=== PATIENT | male | born 1950 | race Caucasian/White ===

== ENCOUNTER 2019-01-14 13:45 | Observation (INO) ==
[2019-01-14] MEDS ORDERED: CARDIZEM IV ONE (14:05)
[2019-01-14 15:09] LABS: BASO# 0.04 X1000 (0.0-0.2); BASO% 0.6 % (0.0-0.8); EOS% 1.6 % (0.0-10.0); HEMOGLOBIN 15.3 g/dL (14.0-18.0); IMM GRAN# 0.04 X1000 (0.0-0.04); IMM GRAN% 0.6 % (0.0-0.5); LYMPH# 1.53 X1000 (1.2-3.4); MCH 32.3 PG (27-31); MCHC 34.8 g/dL (33-37); MONO# 0.62 X1000 (0.11-0.59); MONO% 9.7 % (1.7-9.3); MPV 9.9 FL (7.4-10.4); NEUT# 4.04 X1000 (1.4-6.5); NEUT% 63.5 % (42.2-75.2); PLT 138 X1000 (130-400); RBC 4.73 XMIL (4.7-6.1); RDW 15.2 % (11.5-14.5); WBC 6.37 X1000 (4.8-10.8)
--- NOTE | 2019-01-14 15:09 | EKG Report ---
Test Performed on : 01/14/2019 1:59:40 PM Test Reason : ER Blood Pressure : / mmHG Vent. Rate : 093 BPM Atrial Rate : 264 BPM P-R Int : 000 ms QRS Dur : 094 ms QT Int : 360 ms P-R-T Axes : 266 037 065 degrees QTc Int : 447 ms Atrial flutter. with variable AV block. with occasional ventricular-paced complexes Abnormal ECG When compared with ECG of 15-NOV-2017 14:00, Vent. rate has increased BY 23 BPM Unconfirmed Result
[2019-01-14 15:43] LABS: AGAP 15; ALBUMIN 4.3 g/dL (3.5-5.0); ALKALINE PHOSPHATASE 47 U/L (32-122); BUN 16 mg/dL (8-22); CALCIUM 8.7 mg/dL (8.8-10.2); CHLORIDE 104 mmol/L (98-107); COSMO 275; CREATININE 0.9 mg/dL (0.7-1.2); ESTIMATED GFR > 60; GLUCOSE 99 mg/dL (70-104); GOT 21 U/L (10-34); GPT 25 U/L (10-44); POTASSIUM 4.7 mmol/L (3.5-5.1); SODIUM 137 mmol/L (136-145); TCO2 18 mmol/L (25-35); TOTAL PROTEIN 6.6 g/dL (6.3-8.3)
[2019-01-14] MEDS ORDERED: NS 500 ML IV ONE (15:57)
[2019-01-14] MEDS ORDERED: ZOFRAN IV PRN (17:05)
--- NOTE | 2019-01-14 18:02 | HISTORY AND PHYSICAL ---
CHIEF COMPLAINT: "My heart is running away, and I am having trouble breathing." HISTORY OF PRESENT ILLNESS: This is a 68-year-old gentleman with a history of atrial fibrillation, gastroesophageal reflux disease, and protein S deficiency on chronic anticoagulation, who presented to the emergency room complaining of a sudden onset of palpitations, chest heaviness, fullness, and shortness of breath. He states he has had a history of atrial fibrillation for many years. It sounds like it is paroxysmal atrial fibrillation. He has been on flecainide for many years as well as Coumadin. He states he is aware when he goes in and out of atrial fibrillation, although this episode was not consistent with his normal. On arrival to the emergency room, he had heart rate of 120 and an EKG revealed atrial flutter with a varying AV block and reportedly ventricular tachycardia. He did state that about an hour and a half prior to this episode he took 3 magnesium pills along with his normal multivitamin and a supplement that he was given from a health food store locally. He is unaware of the name of the supplement, although the family is bringing it in. At present, he denies any chest pain, palpitations, any shortness of breath. PAST MEDICAL HISTORY: 1. Atrial fibrillation, paroxysmal. 2. Hypertension, although he is off medications as he has been experiencing hypotension. 3. Gastroesophageal reflux disease. 4. History of DVT. 5. Protein S deficiency, on chronic anticoagulation. 6. 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 PAST SURGICAL HISTORY: Colon resection. SOCIAL HISTORY: He is , lives with his . He denies alcohol or illicit drug use. He does smoke. ALLERGIES: No known drug allergies. HOME MEDICATIONS: A list will be obtained by the nursing staff and will be restarted as appropriate once they are reviewed. REVIEW OF SYSTEMS: Discussed with patient with pertinent positives stated in HPI. He denies any PND, orthopnea, any nausea/vomiting, diarrhea, constipation, black or bloody vomitus or stools, a productive cough, any fever or chills, or any hematuria dysuria frequency or urgency. PHYSICAL EXAMINATION: GENERAL: This is a 68-year-old gentleman, who is sitting up in the stretcher in ICU, in no distress. VITAL SIGNS: Blood pressure was 90/46 with a heart rate of 108, respirations are 20, temperature was 97.3 degrees with O2 saturations of 98% on room air. EYES: Pupils equal, round, and react to light. EOMs are intact. Sclerae anicteric. HEENT: Head is normocephalic, atraumatic. Mucous membranes are moist. NECK: Supple. Trachea midline. CARDIOVASCULAR: Regular rate and rhythm. S1 and S2 appreciated. He has no lower extremity edema with peripheral pulses palpable x4 extremities. PULMONARY: Breath sounds are clear with no increased work of breathing noted. Chest rise and fall symmetric with respiration. GASTROINTESTINAL: Soft, nontender, nondistended with bowel sounds in all 4 quadrants. NEUROLOGIC: He is alert and oriented x3. SKIN: Warm and dry. DIAGNOSTIC STUDIES: WBC is 6.3 with hemoglobin 15.3, hematocrit 44, and platelets of 138,000. Sodium 137, potassium 4.7, BUN 16, creatinine 0.9 with a glucose of 99. Troponin was negative. EKG revealed atrial flutter with varying block and occasional paced beats. ASSESSMENT AND PLAN: 1. Paroxysmal atrial flutter. 2. History of paroxysmal atrial fibrillation. 3. History of protein S deficiency, on chronic anticoagulation. 4. Hypertension, although the patient has been off medications as he has been experiencing hypotension. 5. History of deep vein thrombosis (DVT) secondary to protein S deficiency. PLAN: The patient will be admitted to CICU at [facility]. We will consult Cardiology. He will be placed on telemetry. We will get a stat INR as he is on warfarin. We will get a stat magnesium as we are unsure of exactly how much he did take prior to this. We will identify his home medications and continue these as appropriate. We will check a TSH. Hopefully, the will be able to bring in the supplement that he took so we can have an idea of how long the symptoms may last. Further treatments pending hospital course. Dictated by CHRISTIAN Rodriguez for Bakari Berry MD This chart was documented by, CHRISTIAN Rodriguez and accurately reflects the services performed, treatment plan and medical decisions as attested by the providers signature Bakari Berry MD. cc: CHRISTIAN Rodriguez MD
[2019-01-14 20:31] LABS: INR 1.1; PROTIME 15.1 Seconds (11.0-16.0)
--- NOTE | 2019-01-14 22:19 | HISTORY AND PHYSICAL ---
ADDENDUM: Patient seen and examined by myself. Full note dictated and discussed [*] The patient will be admitted to the hospital. cc: Bakari Berry MD
[2019-01-14] MEDS ORDERED: DESYREL PO SCH (22:38)
[2019-01-14] MEDS: TAMBOCOR PO SCH (23:17)
[2019-01-14] MEDS: BUSPAR PO SCH (23:17)
[2019-01-14] MEDS: ELIQUIS PO SCH (23:17)
[2019-01-15 05:41] LABS: HEMATOCRIT 41.3 % (42.0-52.0); HEMOGLOBIN 13.9 g/dL (14.0-18.0); MCH 32.3 PG (27-31); MCHC 33.7 g/dL (33-37); MPV 10.3 FL (7.4-10.4); RBC 4.3 XMIL (4.7-6.1); RDW 15.3 % (11.5-14.5); WBC 5.89 X1000 (4.8-10.8)
[2019-01-15 07:07] LABS: AGAP 11; ALB/GLOB RATIO 2.2; ALKALINE PHOSPHATASE 39 U/L (32-122); BUN 14 mg/dL (8-22); CALCIUM 8.7 mg/dL (8.8-10.2); CHLORIDE 106 mmol/L (98-107); COSMO 279; ESTIMATED GFR > 60; GLUCOSE 79 mg/dL (70-104); GOT 17 U/L (10-34); GPT 22 U/L (10-44); POTASSIUM 3.9 mmol/L (3.5-5.1); SODIUM 140 mmol/L (136-145); TCO2 23 mmol/L (25-35); TOTAL BILIRUBIN 0.61 mg/dL (0.20-1.00); TOTAL PROTEIN 5.8 g/dL (6.3-8.3)
[2019-01-15] MEDS: BUSPAR PO SCH ×2 (08:55→13:55)
[2019-01-15] MEDS: TAMBOCOR PO SCH (08:55)
[2019-01-15] MEDS: ELIQUIS PO SCH (08:55)
[2019-01-15] MEDS ORDERED: ELIQUIS PO SCH (09:00)
[2019-01-15] MEDS ORDERED: TAMBOCOR PO SCH ×2 (09:00→21:00)
[2019-01-15] MEDS ORDERED: BUSPAR PO SCH (09:00)
--- NOTE | 2019-01-15 10:09 | EKG Report ---
Test Performed on : 01/15/2019 10:02:44 AM Test Reason : Follow up Atrial Flutter Blood Pressure : / mmHG Vent. Rate : 064 BPM Atrial Rate : 064 BPM P-R Int : 242 ms QRS Dur : 104 ms QT Int : 414 ms P-R-T Axes : 064 025 044 degrees QTc Int : 427 ms Sinus rhythm. with 1st degree AV block. Otherwise normal ECG When compared with ECG of 15-JAN-2019 10:01, (Unconfirmed) No significant change was found Unconfirmed Result
--- NOTE | 2019-01-15 11:40 | PROGRESS NOTE ---
DATE: 01/15/2019 INTERVAL HISTORY: Overnight he was transferred from [facility] for atrial flutter with rapid ventricular response on admission and need for cardiology evaluation. SUBJECTIVE: He currently denies any chest pain, shortness of breath, palpitation. He stated that he had an echocardiogram about 2 years ago. He denies known history of coronary artery disease. He denies known history of congestive heart failure. I mentioned to him about need for repeating EKG and echocardiogram. I answered all of his questions. We are awaiting Cardiology recommendation. VITALS: Temperature 97.2 degrees, pulse 64, respiratory rate 16, blood pressure 103/67, saturating 97% room air. PHYSICAL EXAMINATION: General: Does not appear in any acute distress. HEENT: Oral cavity is moist. Lungs: Air entry bilaterally equal. No wheeze, rhonchi, crackles. Heart: S1, S2 normal. No murmur, rub, gallop. Normal sinus rhythm on EKG as well as bedside monitor. Abdomen: Soft. Nontender. Extremities: Bilateral lower extremity edema affecting up to midshin level with chronic lower extremity pigmentation. LABORATORY DATA: Labs suggest normal kidney function, normal electrolytes. Normal CBC. ASSESSMENT AND PLAN: 1. Paroxysmal atrial fibrillation with atrial flutter with variable atrioventricular (AV) block at the time of presentation, now has converted to normal sinus rhythm. Continue his home flecainide and continue apixaban for primary CVA prophylaxis as well as for history of multiple DVTs and protein S deficiency. Follow up with echocardiogram to rule out any structural heart disease. I will appreciate Cardiology recommendation if he needs any addition of beta magdalena. 2. History of multiple deep vein thromboses (DVTs), protein S deficiency. Continue Eliquis. 3. History of sick sinus syndrome status post pacemaker. Follow up with echocardiogram. He had started taking some [id number] supplements for weight reduction. I cautioned him against possible side effects of these supplements. DISPOSITION: I am awaiting echocardiogram and Cardiology evaluation. Based on that, I am anticipating discharge today. Plan of care discussed with the patient. All of his questions have been answered. cc: Aj Zuniga MD
--- NOTE | 2019-01-15 12:04 | DISCHARGE SUMMARY ---
ADMISSION DATE: 01/14/2019 DISCHARGE DATE: 01/15/2019 DISCHARGE DIAGNOSES: 1. Atrial flutter with rapid ventricular response with variable AV block. 2. Atypical chest pain. 3. Past medical history of atrial fibrillation with rapid ventricular response. 4. History of sick sinus syndrome status post pacemaker. 5. History of obstructive sleep apnea. 6. History of protein S deficiency with multiple lower extremity deep venous thromboses, on chronic anticoagulation. 7. History of long-term use of Eliquis. VITALS: At the time of discharge temperature 97.2 degrees, pulse 64, respiratory rate 16, blood pressure 103/67, saturating 97% on CPAP. PHYSICAL EXAMINATION: General: The patient does not appear in any acute distress. HEENT: Oral cavity is moist. Lungs: Air entry bilaterally equal no wheeze, rhonchi, crackles. Cardiovascular: S1, S2 normal. No murmur, rub, or gallop. Appears in sinus rhythm on bedside monitor. Abdomen: Soft nontender. Extremities: Bilateral lower extremity edema extending up to de la paz level with chronic lower pigmentation. SIGNIFICANT LABS DURING HOSPITAL ADMISSION: WBC count was 6000, hemoglobin of 13.9, platelet count of 127,000, potassium of 3.9, creatinine of 1, BUN of 14, magnesium was 2 with normal kidney function. His troponins were negative. IMAGING: During hospital admission: Electrocardiogram on admission had atrial flutter with variable AV block and occasional premature ventricular complexes. Repeat EKG on January 15 before discharge had sinus rhythm with first-degree AV block. DISCHARGE MEDICATIONS: 1. Trazodone 150 mg at nighttime. 2. Buspirone 15 mg 4 times a day. 3. Apixaban 5 mg b.i.d. 4. Flecainide 100 mg p.o. b.i.d. 5. Metoprolol 25 mg BID CONSULTATION: Patient Navigator Dr. Wilkerson [facility] COURSE SUMMARY: Mr. Ramirez is a 68 years old man with prior medical history of atrial fibrillation with rapid ventricular response, sick sinus syndrome status post pacemaker, who came in with complaints of sudden onset of palpitation, chest heaviness and subjective feeling of shortness of breath. He went to [facility]. On arrival, he was found to have a heart rate of 120 and he was in atrial flutter with variable AV block. He was given 10 mg of intravenous diltiazem and overnight was transferred to [facility]. He had spontaneously converted to sinus rhythm and at the time of my evaluation, he did not have any symptoms of chest palpitation, shortness of breath or chest pain. His rhythm was normal sinus. An echocardiogram was ordered and Cardiology evaluation was requested. The mobility developer recommended adding metoprolol to his regimen. He was given one dose of it which he tolerated well. He was advised to follow up with his routine mobility developer in 1 week's time. TIME SPENT: Less than 30 minutes spent in discharging the patient. All of his questions have been answered. cc: Aj Zuniga MD MTDD
[2019-01-15] MEDS ORDERED: TAMBOCOR PO ONE (13:53)
[2019-01-15] MEDS ORDERED: LOPRESSOR PO SCH (14:00)
--- NOTE | 2019-01-15 15:00 | CONSULTATION ---
DATE OF CONSULTATION: 01/15/2019 IMPRESSION: 1. Recurrent paroxysm of atrial fibrillation with rapid ventricular rate as well as transient atrial flutter with very rapid ventricular rate. Patient has spontaneously converted back to sinus rhythm. 2. Paroxysmal atrial fibrillation for several years. 3. Minimal coronary atherosclerosis on multiple studies in the past. 4. Infrequent chronic atypical chest pain, probably noncardiac in origin. 5. Sinus node dysfunction. Patient is status post dual-chamber pacemaker. 6. Protein S deficiency. Patient is on chronic anticoagulation. 7. Posttraumatic stress disorder with history of polysubstance abuse. Patient relates he has been abstaining for the year and a half at this point. 8. Hypertension. 9. Hyperlipidemia. 10. Obstructive sleep apnea. RECOMMENDATIONS: 1. Given recurrent atrial arrhythmias, increase flecainide to 100 mg twice daily. 2. Add metoprolol 25 mg twice daily and consider further increase in the event that the patient has very rapid heart rates related to atrial flutter. 3. Reasonable for patient to be discharged this evening. He has a routine followup with his primary grades 1 6 tutor, Dr. Wolfe, within 1 month. 4. Continue long-term anticoagulation. HISTORY: This 68-year-old, white male with a past history of paroxysmal atrial fibrillation hypertension, obstructive sleep apnea, and protein S deficiency was admitted through the emergency room after he presented with persistent tachycardia for several days. He has a long history of paroxysmal atrial fibrillation and relates that he can tell when he is in atrial fibrillation as he might get a little dizzy when he stands up too quickly. He also checks a pulse oximetry and notes irregular tachycardia on his pulse oximeter. He denies any palpitations. He started noticing that his heart was going faster and irregular 2 days ago on his pulse oximeter. This persisted and he finally came to the emergency room. He was found to be in atrial fibrillation with a rapid ventricular rate, as well as atrial flutter with a very increased ventricular rate response. He has spontaneously converted back to sinus rhythm. There has been no syncope. He does have a history of sinus node dysfunction and is status post dual-chamber pacemaker. He is on chronic anticoagulation with Eliquis. He denies alcohol use for over 18 months. It is noteworthy that he previously had been on metoprolol at his clinic visit last year but is no longer taking this medication. He missed his 1 year followup and has rescheduled with his primary grades 1 6 tutor within the month. PAST MEDICAL HISTORY: 1. Paroxysmal atrial fibrillation. 2. Hypertension. 3. Gastroesophageal reflux. 4. Previous DVT and protein S deficiency. Patient is on chronic anticoagulation. 5. Obstructive sleep apnea. 6. Obesity. 7. History of bowel infarct reportedly secondary to protein S deficiency. 8. Polysubstance abuse with alcohol and recreational drugs in the past. He reports abstaining from substance abuse for over 18 months. 9. PTSD. PAST SURGICAL HISTORY: Includes colon resection. ALLERGIES: He has no known drug allergies. MEDICATIONS PRIOR TO ADMISSION: As listed. It is noteworthy that he has been on Eliquis 5 mg p.o. b.i.d., flecainide 50 mg p.o. b.i.d., and is no longer on metoprolol. SOCIAL HISTORY: He is and lives with his . He has a history of polysubstance abuse but has not used alcohol or recreational drugs in over 18 months. He does not smoke. FAMILY HISTORY: Negative for premature coronary artery disease. REVIEW OF SYSTEMS: Pulmonary: Negative. Gastrointestinal: Negative. Constitutional: Negative. Remainder of review of systems negative/noncontributory with 14 total systems reviewed. PHYSICAL EXAMINATION: General: This is an overweight, older, white male in no distress. Vital Signs: Blood pressure 105/64, heart rate 65 and regular with ECG monitor showing sinus rhythm. Oxygen saturation 98% on room air. HEENT Examination: Extraocular movements appear intact. Mucous membranes moist. Neck: Supple. No jugular venous distention. No carotid bruits. Chest: Clear to auscultation bilaterally. Cardiac: Examination reveals a regular rate and rhythm without appreciable murmur or gallop. Abdomen: Soft. Bowel sounds are normal. Extremities: Without edema. Neurologic: Examination reveals him to be alert and fully oriented. Speech is fluent. He moves all 4 extremities equally well. Skin: Warm and dry. Psychiatric: Examination reveals mood to be appropriate. DIAGNOSTIC STUDIES: A 12 lead EKG from yesterday demonstrates atrial flutter, type 1, with variable AV block and occasional premature ventricular paced complexes. Review of telemetry shows he has converted back to sinus rhythm. There is also a telemetry strip of atrial flutter with rapid ventricular rate last night. LABORATORY DATA: Includes a white blood cell count of 5.89, hematocrit 41.3, hemoglobin 13.9, platelet count 127,000. Sodium 140, potassium 3.9, chloride 106, carbon dioxide 23, BUN 14, creatinine 1.0, glucose 79. Initial troponin less than 0.01, followup troponin less than 0.01, and third troponin less than 0.01. TSH 1.49. cc: Noah Wilkerson MD
[2019-01-15 16:29] VITALS: BP 109/70
[2019-01-15] MEDS ORDERED: DESYREL PO SCH (21:00)
--- NOTE | 2019-01-16 23:03 | ECHO REPORT ---
ORDER DATE: 01/15/2019 MEASUREMENTS: Septal thickness 0.9. Left ventricular internal diameter in diastole 5.5. Posterior wall thickness 0.9. Left ventricular internal diameter in systole 3.9. Aortic root 3.1. Left atrium 4.3. SUMMARY: 1. Technically difficult study due to limited acoustic window quality. 2. Aortic valve is trileaflet and opens normally on 2-dimensional images. Peak gradient across aortic valve is less than 10 mmHg. Mitral, tricuspid, and pulmonic valves are without evidence of structural abnormality with trace tricuspid regurgitation. Aortic root is normal in size. 3. Normal left ventricular dimensions demonstrated. Estimated left ventricular ejection fraction appears to be at least 60%. No regional wall motion abnormalities are evident. Left atrium is mildly enlarged. Right atrium, right ventricle are normal in size with normal right ventricular systolic function. Pacemaker lead is evident in the right ventricle and right atrium. 4. No pericardial effusion. 5. Appearance of inferior vena cava suggests normal central venous pressure. cc: MD Aj Stockton MD
== END 2019-01-15 18:13 | disposition home or self-care (01) ==
LOC: P.ED 13:45 → DIRADM 17:05 → 3S 17:05 → OPS 17:05 → 3S 18:31 → SUATTDRO 18:31
PROVIDERS: ADMIT Family Medicine; ATTEND Family Medicine
CPT/HCPCS: 80053; 82550; 83735; 84443; 84484; 85025; 85027; 85610; 93005; 93010; 93306; 96361; 96374; 99284; A9270; J7040

== ENCOUNTER 2019-03-13 11:43 | Observation (INO) ==
[2019-03-13] MEDS ORDERED: NS 1,000 ML IV ONE ×2 (13:02→16:39)
[2019-03-13 13:16] LABS: BASO# 0.06 X1000 (0.0-0.2); BASO% 1.2 % (0.0-0.8); EOS# 0.12 X1000 (0.0-0.7); EOS% 2.3 % (0.0-10.0); HEMATOCRIT 45.1 % (42.0-52.0); HEMOGLOBIN 15.7 g/dL (14.0-18.0); IMM GRAN# 0.02 X1000 (0.0-0.04); IMM GRAN% 0.4 % (0.0-0.5); LYMPH# 1.24 X1000 (1.2-3.4); LYMPH% 24.1 % (20.5-51.1); MCH 32.6 PG (27-31); MCHC 34.8 g/dL (33-37); MCV 93.6 FL (81-99); MONO# 0.49 X1000 (0.11-0.59); MONO% 9.5 % (1.7-9.3); MPV 10.6 FL (7.4-10.4); NEUT# 3.22 X1000 (1.4-6.5); NEUT% 62.5 % (42.2-75.2); PLT 126 X1000 (130-400); RBC 4.82 XMIL (4.7-6.1); RDW 15.5 % (11.5-14.5); WBC 5.15 X1000 (4.8-10.8)
[2019-03-13 13:37] LABS: ALB/GLOB RATIO 2.6; ALBUMIN 4.5 g/dL (3.5-5.0); CALCIUM 8.9 mg/dL (8.8-10.2); CREATININE 1.3 mg/dL (0.7-1.2); MAGNESIUM 2.1 mg/dL (1.5-2.7); POTASSIUM 4.7 mmol/L (3.5-5.1); TOTAL BILIRUBIN 0.53 mg/dL (0.20-1.00); TOTAL PROTEIN 6.2 g/dL (6.3-8.3)
--- NOTE | 2019-03-13 14:15 | EKG Report ---
Test Performed on : 03/13/2019 11:56:25 AM Test Reason : ED. No order in [place] Blood Pressure : / mmHG Vent. Rate : 077 BPM Atrial Rate : 441 BPM P-R Int : 000 ms QRS Dur : 090 ms QT Int : 354 ms P-R-T Axes : 000 042 051 degrees QTc Int : 400 ms Undetermined rhythm Otherwise normal ECG When compared with ECG of 21-FEB-2019 18:34, (Unconfirmed) Current undetermined rhythm precludes rhythm comparison, needs review ST elevation now present in Inferior leads ST elevation now present in Lateral leads QT has shortened Unconfirmed Result
[2019-03-13 14:32] LABS: URINE SOURCE CLEAN CATCH
[2019-03-13 14:38] LABS: BILIRUBIN URINE NEGATIVE (NEGATIVE); BLOOD URINE NEGATIVE (NEGATIVE); COLOR YELLOW; GLUCOSE URINE NEGATIVE (NEGATIVE); KETONE URINE 10 mg/dL (NEGATIVE); LEUKOCYTES URINE NEGATIVE (NEGATIVE); NITRITE URINE NEGATIVE (NEGATIVE); PH URINE 5.5; PROTEIN URINE NEGATIVE (NEGATIVE); SP GRAVITY URINE 1.008; TURBIDITY URINE CLEAR (CLEAR); UROBILINOGEN URINE NORMAL (NORMAL)
[2019-03-13 14:39] LABS: UR EPITHELIAL CELLS <10 /HPF (<10); URINE BACTERIA NEGATIVE /HPF; URINE RBC <10 /HPF (<10); URINE WBC <10 /HPF (<10)
--- NOTE | 2019-03-13 16:56 | PROVIDER DOCUMENTATION ---
This chart was entered by Lacie Osuna Scribe, acting as scribe for Benny Dick MD. HPI-General Adult - General Chief Complaint: Dizziness Stated Complaint: CP,LOW BP Time Seen by Provider: 03/13/19 12:37 Source: patient Allergies/Adverse Reactions: Patient Allergies Allergy/AdvReac Type Severity Reaction Status Date / Time No Known Allergies Allergy Verified 03/13/19 12:46 Home Medications: Home Medication List Medication Instructions Recorded Confirmed Last Taken Type Buspirone [Buspar] 15 mg PO 4XDAY 11/14/15 03/13/19 03/13/19 History Trazodone [Desyrel] 150 mg PO QHS 11/14/15 03/13/19 03/12/19 History Apixaban [Eliquis] 5 mg PO BID 01/14/19 03/13/19 03/13/19 History Dronedarone HCl [Multaq] 200 mg PO BID 03/13/19 03/13/19 03/13/19 History - History of Present Illness -Gen Adult Nature of Presenting Problems: 68 yowm presents to the ed with c/o dizziness and afib after working in his yard yesterday. pt sts this am he had diarrhea x1 after eating fish. pt on exam l ooks nontoxic in appearance. pt has BP 98/59 but sts that is his baseline Location of Pain/Injury: reports: none Pain Radiation: reports: no radiation Quality of Pain: reports: none Severity: reports: mild Onset/Duration: reports: 24 hours ago Timing: reports: gone now, intermittent Context/Activities at Onset: reports: moderate activity (was outside) Modifying Factors: improves with: nothing. worse with: other ([employer]) Associated Symptoms: reports: diarrhea, dizziness. denies: back/neck pain, c hest pain, fever/chills, vomiting, weakness Similar Symptoms Previously?: Yes Recently seen or treated by another doctor?: No Review of Systems - Adult - REVIEW OF SYSTEMS - ADULT Constitutional: reports: no symptoms reported Eyes: denies: blurred vision, double vision Ears, Nose, Mouth & Throat: reports: no symptoms reported Cardiovascular: reports: palpitations. denies: chest pain, syncope Respiratory: denies: shortness of breath, wheezing Gastrointestinal: reports: see HPI, diarrhea. denies: nausea, vomiting Genitourinary: reports: no symptoms reported Musculoskeletal: reports: no symptoms reported Integumentary: reports: no symptoms reported Neurological: reports: see HPI, dizziness/vertigo. denies: headache/migraines, seizure, slurred speech, syncope Psychiatric: reports: no symptoms reported Endocrine: reports: no symptoms reported Hematologic/Lymphatic: reports: no symptoms reported Allergic/Immunologic: reports: no symptoms reported All Other Systems: Reviewed and Negative Past History - Adult - PAST MEDICAL HISTORY-ADULT Review of Records: reports: Nursing Assessment Review, Medications Reviewed Major Childhood Illnesses: reports: denies history Cardiovascular: reports: A-Fib, blood clots (bilateral legs ), HTN, pacemaker Respiratory: reports: denies history Gastrointestinal: reports: GERD Genitourinary: reports: kidney disease Musculoskeletal: reports: denies history Neurological: reports: denies history Psychiatric: reports: anxiety, ptsd Endocrine/Immune: reports: bleeding disorder (clots) Other Conditions: reports: denies history - PRIOR SURGERIES/PROCEDURES Surgical/Procedure History: reports: pacemaker, bowel surgery, orthopedic (extremity) (L wrist ) - IMMUNIZATION STATUS Childhood Immunizations: See Nurse Assessment Flu Vaccine: See Nurse Assessment - FAMILY HISTORY Family History: reviewed, not pertinent - SOCIAL HISTORY Smoking: quit greater than 1 year Substance Use: alcohol Alcohol Use Frequency: 2-3 times a month Number of drinks per typical drinking period:: 3-4 drinks Living Situation: family Physical Exam-General - PHYSICAL EXAM-ADULT Initial Vital Signs Reviewed: Yes - CONSTITUTIONAL General Appearance: appears well, alert, no apparent distress, obese - EYES Eyes: PERRL/EOMI, pink conjunctivae - HEAD, EARS, NOSE, MOUTH & THROAT HENMT: moist mucous membranes, normal ENT inspection - NECK Neck: non-tender, full range of motion, supple, normal inspection - RESPIRATORY Respiratory: chest non-tender, lungs clear, normal breath sounds - CARDIOVASCULAR Cardiovascular: irregularly irregular - GASTROINTESTINAL (ABDOMEN) Abdominal Exam: normal bowel sounds, non tender, soft - LYMPHATIC Lymphatic: no adenopathy - MUSCULOSKELETAL Back Exam: normal inspection, no CVA tenderness, no vertebral tenderness Extremity: normal range of motion, non-tender, normal gait, normal inspection, no pedal edema, no calf tenderness, normal capillary refill, pelvis stable - SKIN Integumentary: normal color, normal turgor, warm/dry - NEUROLOGIC Neurologic: grossly normal, no motor/sensory deficits - PSYCHIATRIC Psych/Mental Status: normal mood/affect, normal thought content, normal thought process, oriented x 3 Progress - PLAN OF CARE/RESULTS Progress/Plan/Lab Results: Vital Signs - 8 hr 03/13/19 11:53 03/13/19 11:57 Temperature 97.9 F Pulse Rate 68 Pulse Rate [Sitting] 68 Pulse Rate [Standing] 71 Respiratory Rate 20 Blood Pressure 93/63 Blood Pressure [Sitting] 93/63 Blood Pressure [Standing] 87/64 O2 Sat by Pulse Oximetry 97 Result Diagrams: 03/13/19 12:28 03/13/19 12:28 - REASSESSMENT Reassessment #1 Time Reassessed: 13:03 Status: improving Reassessment #2 Status: unchanged (pt remains hemodynamically stable, no signif CP, but now noted to have frequent unifocal PVC and somewhat frequent runs of non-sustained VTach. disc'd at length w/ Dr. Lopez" (pt' wildlife and game protector at [facility]) who opined pt needs admit to "r/o NH," and then eval by Dr. Choe" (? sp) at [facility], to whom he had been previously referred and is scheduled. Dr. Kumar noted recent failure on Flecainide, resulting in the switch to dronedarone 2-3 weeks ago, and now the 'new' VTach. feels the EP consult is important.) - EKG 1 Time of EKG reading by physician:: 11:56 EKG Read and Signed by:: Benny Dick EKG Interpretation (*Must complete 3 of following elements*): Normal Rate: 77 Rhythm: afib Williams: normal QRS: PVC's [place] Interval: normal ST Wave: normal Prior EKG Comparison: unchanged from prior (11/15/2018) - CONSULTS/PCP/HOSPITALIST Notification #1 *Consult/PCP/Hospitalist*: hospitalist Time Discussed: 15:28 (wants dr stanley consulted to see if pt will stay here or transfer to ) Reason/Comments: phone consult #2 Consult: dr stanley Time Discussed: 15:42 (will consult) Reason/Comments: phone consult Consult Disposition: Admit #3 Consult: spoke with elio Time Discussed: 15:45 Reason/Comments: pt is admitted to hospitalist Consult Disposition: Admit Departure - Departure Date of Disposition Decision: 03/13/19 Time of Disposition Decision: 16:15 DIAGNOSIS: Paroxysmal atrial fibrillation, Non-sustained ventricular tachycardia Disposition: ADMITTED INPATIENT 09 Certified Medical Emergency: Emergent Condition: Stable - Critical Care Note This patient required my direct & personal management of CC.: No Attestation - Physician/ MARGARITA Attestation Patient care was provided by Advanced Practice Provider:: No The physician spent face to face time with patient:: Yes Advanced Practice Provider documentation review:: Supervising physician onsite and consulted in the evaluation and care of this patient. The physician did have a face to face encounter with the patient. This chart was documented by the indicated scribe, (Lacie Osuna Scribe) and accurately reflects the services I performed and decisions made by me, Benny Dick MD, as attested by the provider's signature.
[2019-03-13] MEDS: BUSPAR PO SCH ×2 (17:00→21:00)
[2019-03-13] MEDS ORDERED: NS 500 ML IV ONE (17:32)
--- NOTE | 2019-03-13 18:00 | HISTORY AND PHYSICAL ---
PRIMARY CARE PHYSICIAN: Dr. Fernandez. FILTERATION OPERATOR: Dr. Wolfe in [place], [place]. CHIEF COMPLAINT: Dizziness and hypotension. HISTORY OF PRESENT ILLNESS: Mr. Ramirez is a 68-year-old male with a history of sinus node dysfunction, status post dual chamber pacemaker, recurrent paroxysmal atrial fibrillation, protein S deficiency, on anticoagulation therapy, and nonobstructive coronary disease, who presents to the ER today with hypotension and dizziness. Mr. Ramirez was doing yard work yesterday when it began to rain suddenly. He began to work a bit faster and more intensely. When he got done he took a shower and afterwards he was sitting on the edge of his bed and he noticed that he was a bit more dizzy so he checked his heart rate and blood pressure. His heart rate was anywhere from 100 to 120 beats a minute. His blood pressure was low at 80 systolic. He decided to try to "sleep it off" last night, however he woke up again today and was hypotensive and dizzy. He decided to come to the ER for evaluation. He does report a musculoskeletal type chest pain that is due to being in the yard yesterday. He has mild tenderness to palpation over the chest. He denies any overt shortness of breath or angina. No abdominal pain. No nausea. No vomiting. He denies any fever or chills. In the ER labs were done. He is noted to have mild elevation in his creatinine at 1.3. Otherwise, his labs were unremarkable. EKG did show ventricular paced rhythm with underlying atrial fibrillation. ER doctor spoke with Dr. Wolfe, who felt patient should be admitted and evaluated by Cardiology. PAST MEDICAL HISTORY: 1. Paroxysmal atrial fibrillation. 2. Sinus node dysfunction, status post pacemaker. 3. Nonobstructive coronary disease. 4. 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 5. PTSD. 6. Hypertension. 7. Hyperlipidemia. 8. Obstructive sleep apnea. SURGICAL HISTORY: He has had a colon resection and pacemaker placement. SOCIAL HISTORY: He has a remote history of substance abuse. He quit smoking as well. FAMILY HISTORY: Unremarkable. REVIEW OF SYSTEMS: A 14-point review of systems was obtained and found to be negative with the exception of the HPI. ALLERGIES: No known drug allergies. HOME MEDICATIONS: BuSpar 15 mg p.o. four times a day, Desyrel 150 mg p.o. at bedtime, Eliquis 5 mg p.o. b.i.d., Multaq 200 mg p.o. b.i.d. PHYSICAL EXAMINATION: VITAL SIGNS: Blood pressure 104/66; heart rate 72; respiratory rate 15; O2 saturation 96% on room air; temperature 97.9. GENERAL: This is a slightly overweight male lying in the hospital bed in no acute distress. NEUROLOGICAL: He is awake and alert. Follows commands without focal deficits. HEENT: Head is atraumatic and normocephalic. His pupils are equal, round and reactive to light. His oral mucosa is moist. NECK: Trachea is midline. There is no JVD. CHEST: Clear to auscultation bilaterally. CARDIOVASCULAR: Slightly irregular. S1 and S2 are noted. A 1/6 murmur is appreciated. GASTROINTESTINAL: Soft. Nondistended. Nontender. Bowel sounds are positive. EXTREMITIES: Without edema. Pulses 1+ bilaterally. DIAGNOSTIC DATA: EKG partially paced with underlying atrial fibrillation. WBC 5.15, hemoglobin 15.7, hematocrit 45.1, platelet count 126,000. Sodium 139, potassium 4.7, chloride 104, CO2 23, anion gap 12, BUN 20, creatinine 1.3, glucose 100. LFTs negative. Troponin negative x1 set. Protein 6.2. UA is negative. ASSESSMENT AND PLAN: 1. Paroxysmal atrial fibrillation with hypotension: The patient denies any overt angina, however given his history will admit him for observation. Consult Cardiology. Trend cardiac enzymes. He has had a recent echocardiogram done which showed an ejection fraction of 60% without acute abnormalities. He does not have a fever and no nidus of infection, CXR pending. He does appear to be volume depleted as he is orthostatic. We will gently hydrate. 2. Protein S deficiency: We will continue his home Xarelto. 3. Thrombocytopenia: On review of his labs this appears to be chronic. We will go ahead and check iron studies. 4. Post traumatic stress disorder. Continue BuSpar. 5. Deep venous thrombosis prophylaxis with Xarelto. Further recommendations to follow. Dictated by CHRISTIAN Huang for Kaylin Amaya MD cc: CHRISTIAN Huang MD Gocha Saliashvili, MD I performed a face to face encounter on the patient. I reviewed all labs on the patient. I agree with the H&P as dictated. MTDD
[2019-03-13] MEDS: ELIQUIS PO SCH (21:00)
[2019-03-13] MEDS: MULTAQ PO SCH (21:00)
[2019-03-13] MEDS ORDERED: DESYREL PO SCH (21:00)
[2019-03-14 06:39] LABS: BASO# 0.04 X1000 (0.0-0.2); BASO% 0.8 % (0.0-0.8); EOS# 0.13 X1000 (0.0-0.7); EOS% 2.7 % (0.0-10.0); HEMOGLOBIN 13.8 g/dL (14.0-18.0); IMM GRAN# 0.03 X1000 (0.0-0.04); IMM GRAN% 0.6 % (0.0-0.5); LYMPH% 31.3 % (20.5-51.1); MCH 32.9 PG (27-31); MCHC 34.5 g/dL (33-37); MCV 95.2 FL (81-99); MONO# 0.46 X1000 (0.11-0.59); MONO% 9.6 % (1.7-9.3); MPV 10.4 FL (7.4-10.4); NEUT# 2.64 X1000 (1.4-6.5); PLT 112 X1000 (130-400); RDW 15.5 % (11.5-14.5)
[2019-03-14 07:17] LABS: AGAP 9; BUN 17 mg/dL (8-22); CALCIUM 8.1 mg/dL (8.8-10.2); CHLORIDE 112 mmol/L (98-107); COSMO 285; ESTIMATED GFR > 60; GLUCOSE 97 mg/dL (70-104); MAGNESIUM 2.2 mg/dL (1.5-2.7); SODIUM 142 mmol/L (136-145); TCO2 21 mmol/L (25-35)
[2019-03-14] MEDS: MULTAQ PO SCH (08:45)
[2019-03-14] MEDS: BUSPAR PO SCH ×2 (08:52→13:00)
[2019-03-14] MEDS: ELIQUIS PO SCH (08:53)
[2019-03-14] MEDS ORDERED: LEXISCAN ONE (11:29)
--- NOTE | 2019-03-14 11:54 | EKG Report ---
Test Performed on : 03/13/2019 2:24:59 PM Test Reason : ER Blood Pressure : / mmHG Vent. Rate : 070 BPM Atrial Rate : 065 BPM P-R Int : 000 ms QRS Dur : 092 ms QT Int : 384 ms P-R-T Axes : 000 028 041 degrees QTc Int : 414 ms Atrial fibrillation. with frequent ventricular-paced complexes Abnormal ECG When compared with ECG of 13-MAR-2019 11:56, (Unconfirmed) Previous ECG has undetermined rhythm, needs review Confirmed by Juan MADDOX, Wayne Hankins ([id number]) on 03/17/2019 9:27:26 AM
--- NOTE | 2019-03-14 14:06 | Diag Imaging Result Document ---
PROCEDURE NAME: MYOCARDIAL PERF SCAN, STR/REST - 03/14/2019 PROCEDURE: Lexiscan sestamibi interpretation. SUMMARY: The patient was administered 11.8 mCi of technetium-99m sestamibi, after which resting cardiac images were obtained. The patient was subsequently administered Lexiscan 0.4 mg intravenously, after which his heart rate went from 66 beats per minute to 89 beats per minute. The blood pressure went from 95/62 to 110/61. With Lexiscan, the patient denied chest discomfort. Following the administration of Lexiscan, the patient was administered 33.9 mCi of technetium 99-m sestamibi after which gated stress cardiac images were obtained. Baseline ECG demonstrated normal sinus rhythm. With Lexiscan, there were no diagnostic ST-segment changes. SPECT images were reconstructed in the short, horizontal, and vertical long axis. Review of these images demonstrated mildly diminished activity in the basal to mid inferior wall stress images which appear similar on resting images. No significant reversibility is evident. Gated images demonstrate a calculated left ventricular ejection fraction of 76% with symmetrical wall motion/thickening. CONCLUSIONS: 1. Adequate response to Lexiscan. 2. Clinically negative for chest pain. 3. Electrocardiographically negative for Lexiscan-induced myocardial ischemia. 4. Lexiscan sestamibi images demonstrate fixed mildly diminished activity in the basal to mid inferior wall with corresponding preserved regional wall motion most consistent with diaphragm attenuation artifact. There is no convincing scintigraphic evidence of inducible myocardial ischemia. Normal left upper systolic function demonstrated. cc: MD Kaylin Stockton MD
[2019-03-14 15:08] VITALS: BP 130/62
--- NOTE | 2019-03-14 15:35 | CONSULTATION ---
DATE OF CONSULTATION: 03/14/2019 IMPRESSION: 1. Recurrent atrial fibrillation despite Multaq 200 mg p.o. b.i.d. Patient has previously had recurrent atrial fibrillation despite flecainide. 2. Reported ventricular arrhythmia wall in the emergency room. However review of telemetry ECG from monitoring shows atrial fibrillation with ventricular pacing but no ventricular tachycardia. 3. Minimal coronary atherosclerosis on multiple studies in the past, although patient has had not had evaluation and at least 2 years. 4. Sinus node dysfunction. Patient is status post dual-chamber pacemaker. 5. Protein S deficiency with history of recurrent deep venous thromboses in the past. Patient continues on chronic anticoagulation currently with Eliquis. 6. Post traumatic stress disorder with history of polysubstance abuse and alcohol abuse. Patient has been abstaining for over 18 months now. 7. Hypertension. 8. Hyperlipidemia. 9. Obstructive sleep apnea. RECOMMENDATIONS: 1. Follow through with Lexiscan myocardial perfusion study for screening purposes. 2. Increase Multaq to 400 mg p.o. b.i.d. Patient has EP/arrhythmia followup in approximately 4 weeks and this would certainly be a reasonable interval time to see if Multaq increased is preventing atrial fibrillation. HISTORY: This 68-year-old, white male with past history of paroxysmal atrial fibrillation, hypertension, obstructive sleep apnea, sinus node dysfunction requiring permanent pacemaker, and protein S deficiency with recurrent DVTs in the past was admitted through the emergency room yesterday afternoon. He has history of paroxysmal atrial fibrillation that recurred despite flecainide. He was switched to Multaq 200 mg p.o. b.i.d. He relates that yesterday he felt weak and checked his blood pressure. His blood pressure was lower with systolic blood pressure around 90. He had some lightheadedness if he stood up quickly. He came into the emergency room and was noted to be in atrial fibrillation. He was thought to have some ventricular arrhythmias which raise concern regarding possible coronary disease and associated rhythm instability. He was subsequently admitted to have further evaluation with serial cardiac enzymes and myocardial perfusion study. Upon further review of telemetry reported in the emergency room he demonstrates atrial fibrillation with ventricular pacing at times. There was no ventricular tachycardia recorded. He was also converted back to sinus rhythm. He had no palpitations. He denies chest pain to me. PAST MEDICAL HISTORY: 1. Paroxysmal atrial fibrillation. 2. Sinus node dysfunction requiring permanent pacemaker. 3. Hypertension. 4. Previous recurrent deep venous thromboses and protein S deficiency. Patient had been on warfarin but was ultimately switched to Eliquis. 5. Gastroesophageal reflux disease. 6. Minimal coronary atherosclerosis on previous cardiac catheterization in the past. He believes he had a stress test which was negative approximately 2 years ago. 7. Obesity. 8. Polysubstance abuse and alcohol abuse in the past. Patient reports of abstaining for over 18 months. 9. Posttraumatic stress disorder. PAST SURGICAL HISTORY: Colon resection. ALLERGIES: No known drug allergies. MEDICATIONS PRIOR TO ADMISSION: As listed. It is noteworthy he has been on Multaq 200 mg p.o. b.i.d. for approximately 3 weeks. SOCIAL HISTORY: He is . He has history of polysubstance abuse and alcohol abuse but has abstained for over 18 months. He does not smoke. FAMILY HISTORY: Negative for premature coronary disease. REVIEW OF SYSTEMS: Pulmonary: Negative. Gastrointestinal: Negative. Constitutional: Negative. Remaining review of systems negative/noncontributory with 14 total systems reviewed. PHYSICAL EXAMINATION: General: Reveals a overweight older white male in no distress. Vital signs: Blood pressure 105/69, heart rate 61 and regular, with ECG monitor presently showing sinus rhythm. Oxygen saturation 96% on room air. HEENT: Extraocular movements intact. Mucous membranes are moist. Neck: Supple. No jugular venous distention. No carotid bruits. Chest: Clear to auscultation bilaterally. Cardiac Exam: Reveals a regular rate and rhythm without appreciable murmur or gallop. Abdomen: Soft. Bowel sounds are normal. Extremities: Without edema. Venous stasis changes are evident. Neurologic: Reveals him to be alert and fully oriented. Speech is fluent. Moves all 4 extremities equally well. Skin: Warm dry. Psychiatric: Mood to be appropriate. PERTINENT DATA: Twelve lead EKG demonstrates atrial fibrillation with demand ventricular pacing. Review of stored telemetry ECG shows atrial fibrillation with demand ventricular pacing converting to sinus rhythm. There has been no ventricular tachycardia. LABORATORY DATA: Includes white blood cell count of 4.8, hematocrit 40.0, hemoglobin 13.8, platelet count 112,000. Sodium 142, potassium 4.0, chloride 112. Carbon dioxide 21, BUN 17, creatinine 1.0, glucose 97 CPK less than 0.01. Followup CPK less than 0.01. And 3rd CPK less than 0.01. cc: Noah Wilkerson MD [facility]
== END 2019-03-14 15:15 | disposition home or self-care (01) ==
LOC: EDIPHOLD 11:43 → ED 11:43 → EDIPHOLD 03-14 15:17
PROVIDERS: ATTEND Internal Medicine
CPT/HCPCS: 78452; 80048; 80053; 81001; 82550; 82948; 83735; 84484; 85025; 93005; 93017; 99285; A9270; A9500; J2785; J7030; J7040; XXXXX